=== PATIENT | male | born 1950 | race Caucasian/White ===

== ENCOUNTER → 2018-02-05 | Outpatient (CLI) | payer MEDICARE ==
[~2018-02-05] MED LIST: ASP81TEC PO; ATOR80TA PO; CHOL200018 PO; CLOP75TA PO; DIPH1TAB PO; FLUT1DIS26 IH; FOLI0.4T2 PO; LEVO75TA57 PO; METO50TA7 PO; OMEG1CAP74 PO; ONDA8TAB9 PO; PNT40TEC PO; RNT150T PO; TRIA16.5
== END ==
LOC: CARD 08:34
PROVIDERS: ATTEND Nurse Practitioner Family
DX: I25.10 Atherosclerotic heart disease of native coronary artery without angina pectoris (principal); I08.1 Rheumatic disorders of both mitral and tricuspid valves
CPT/HCPCS: 93306

== ENCOUNTER → 2018-02-09 | Outpatient (CLI) | payer MEDICARE ==
[~2018-02-09] MED LIST changes: +CATHETER FLUSH 10 ML SYR IV PRN
[2018-02-09 13:14] VITALS: BP 168/81
--- NOTE | 2018-02-10 00:20 | STRESS TEST ---
DATE OF SERVICE: 02/09/2018 RESTING AND POST EXERCISE TECHNETIUM-99M TETROFOSMIN SPECT CT IMAGING ORDERING PHYSICIAN: Pili Peña APRN PRIMARY CARE PHYSICIAN: Dr. Claudio. OTHER PHYSICIAN: Dr. Vogel. CLINICAL DIAGNOSES: Coronary artery disease. Baseline images were carried out after injection of 10.94 mCi of technetium-99m Tetrofosmin. This was followed by exercise on a treadmill. Mukund protocol was employed. He completed two stages and exercised for 2 minutes in the third stage. The total exercise time was 8 minutes. Exercise was stopped on account of fatigue. He attained 90% of maximum predicted heart rate. There did not appear to be significant ST segment changes consistent with ischemia. No significant arrhythmia was seen during exercise. Heart rate response to exercise was normal. Blood pressure response to exercise was somewhat hypertensive. In the recovery phase, a few isolated and one coupled premature ventricular contractions were seen. He received 32.8 mCi of technetium-99m Tetrofosmin for stress imaging after he had attained more than 85% of maximum predicted heart rate and the exercise was continued for more than another minute. Review of images at rest and following stress does not indicate any significant perfusion defects consistent with significant myocardial ischemia or infarction. Gated images show normal global left ventricular systolic function. Normal regional wall motion. Left ventricular ejection fraction is calculated to be 64%. Left ventricular end diastolic volume is 68 mL. TID is absent (1.04). CONCLUSIONS: 1. No evidence of significant myocardial ischemia or infarction on this study. 2. Normal regional wall motion. 3. Normal global left ventricular systolic function with a calculated ejection fraction 64%. 4. Normal left ventricular cavity size. Job ID: [id number] DocumentID: [id number] Dictated Date: 02/09/2018 20:40:39 Mushroom Press Operator Date: 02/10/2018 00:19:38 Dictated By: SOHEILA VOGEL MD, MA, FACP, FACC,
== END ==
LOC: CARD 12:01
PROVIDERS: ATTEND Nurse Practitioner Family
DX: I25.10 Atherosclerotic heart disease of native coronary artery without angina pectoris (principal)
CPT/HCPCS: 78452; 93017

== ENCOUNTER → 2020-01-10 | Outpatient (CLI) | payer MEDICARE ==
[~2020-01-10] MED LIST changes: -CATHETER FLUSH 10 ML SYR IV PRN
== END ==
LOC: CARD 07:15
PROVIDERS: ATTEND Internal Medicine Cardiovascular Disease
DX: I25.10 Atherosclerotic heart disease of native coronary artery without angina pectoris (principal); Z53.8 Procedure and treatment not carried out for other reasons

== ENCOUNTER 2020-01-28 16:04 | Outpatient (RCR) | payer MEDICARE ==
[~2020-01-28] VITALS: Ht 180 cm; Wt 95.9 kg
[~2020-01-28 16:04] MED LIST changes: +AMLO5TAB4 PO; +ASCO500C15 PO; +ASPI-999 PO; +ATOR80TA64 PO; +CHOL100048 PO; +CLOP75TA69 PO; +FAMO-119 PO; +FOLI0.8T PO; +LEVO100T7 PO; +NF-MET200T PO; +PANT40TA52 PO
== END 2020-01-28 16:05 | disposition home or self-care (01) ==
LOC: PREOP 16:04
PROVIDERS: ATTEND Internal Medicine
DX: Z01.812 Encounter for preprocedural laboratory examination (principal); Z20.828 Contact with and (suspected) exposure to other viral communicable diseases
CPT/HCPCS: 87635

== ENCOUNTER 2020-01-31 07:02 | Day surgery (SDC) | payer MEDICARE ==
--- NOTE | 2020-01-20 06:45 | HISTORY AND PHYSICAL ---
DATE OF SERVICE: COLONOSCOPY AND EGD HISTORY AND PHYSICAL HISTORY OF PRESENT ILLNESS: The patient is a 69-year-old white male, being set up for screening colonoscopy and diagnostic EGD. He has a history of reflux and reports that he has been having breakthrough symptoms on pantoprazole in the morning and recent switch due to contaminant issues from ranitidine to Pepcid 20 mg at bedtime. Most of his breakthrough symptoms are in the evening. He reports no change in occasional social alcohol intake and believes that his weight has been stable. He has a history of coronary artery disease several years out from stent placement for which he is on aspirin and Plavix. He has noted no bright red blood per rectum or melena and denies dysphagia. MEDICATIONS ON ADMISSION: Metoprolol 20 mg q.a.m. daily, Norvasc 5 mg at bedtime, Plavix 75 mg daily, aspirin 81 mg daily, pantoprazole 40 mg in the morning, Pepcid 20 mg in the evening. He also occasionally takes QVAR 2 puffs twice a day. FAMILY HISTORY: Father at the age of 58 secondary to myocardial infarction. Mother at the age of 69, result of a motor vehicle accident. He has one sister living at the age of 73 with history of nasopharyngeal carcinoma. SOCIAL HISTORY: He has roughly a [id number] smoking history, but quit 11 years ago with occasional social alcohol intake. PHYSICAL EXAMINATION: GENERAL: Reveals a well-appearing white male in no acute distress. VITAL SIGNS: Weight 211.4 pounds, blood pressure 126/60. HEENT: Unremarkable except that he did have cerumen impaction in the left ear only. He does have presbycusis for which he wears a hearing aid. NECK: Revealed no JVD, adenopathy or bruits. CHEST: Clear. CARDIOVASCULAR: Regular rate and rhythm without murmur, S3 or S4. ABDOMEN: Soft, supple without mass, organomegaly or tenderness. EXTREMITIES: Reveal no cyanosis, clubbing or edema. SKIN: Evaluation revealed no suspicious nevi. ASSESSMENT AND PLAN: The patient was set up for screening colonoscopy and diagnostic EGD due to her reflux symptoms refractory to proton pump inhibitor therapy. Prep instructions with the Suprep kit were given and questions were answered. The patient is being tentatively set up for 01/31/2020. The patient will hold aspirin and Plavix one week prior to the procedure. Job ID: [id number] DocumentID: [id number] Dictated Date: 01/15/2020 16:29:42 Tube Wrapper Date: 01/15/2020 17:04:58 Dictated By: YESY SANCHEZ MD
[~2020-01-31] VITALS: Ht 180 cm; Wt 95.9 kg
[2020-01-31] MEDS ORDERED: LACTATED RINGERS 1,000 ML IV ONE (07:06)
[2020-01-31] MEDS ORDERED: proPOfol 200 MG/20 ML (DIPRIVAN) VIAL IV ONE (07:18)
[2020-01-31] MEDS ORDERED: LACTATED RINGERS 1,000 ML IV STA (07:20)
[2020-01-31 07:30] VITALS: BP 128/83
[2020-01-31] MEDS ORDERED: HURRICAINE EXT TUBE (BENZOCAINE) XX PRN (07:30)
[2020-01-31] MEDS ORDERED: LIDOCAINE JELLY 2% 6 ML SYRINGE MM PRN (07:30)
[2020-01-31] MEDS ORDERED: LIDOCAINE JELLY 2% 6 ML SYRINGE ONE (07:52)
[2020-01-31] MEDS ORDERED: HURRICAINE EXT TUBE (BENZOCAINE) ONE (07:53)
[2020-01-31 08:30] VITALS: BP 107/57
[2020-01-31 08:35] VITALS: BP 110/61
--- NOTE | 2020-01-31 08:35 | Pre-Op Note & Conscious Sedat ---
Pre-Operative Progress Note H&P Reviewed The H&P was reviewed, patient examined and no changes noted. Date H&P Reviewed: Jan 31, 2020 Time H&P Reviewed: 07:40 Conscious Sedation Pre-Proced ASA Score 2 For ASA 3 and 4: Consider anesthesia and medical clearance. Also, for patients with a history of failed moderate sedation consider anesthesia. Airway Lungs Heart ASA score ASA 1: a normal healthy patient ASA 2: a patient with a mild systemic disease (mid diabetes, controlled hypertension, obesity ASA 3: a patient with a severe systemic disease that limits activity (angina, COPD, prior Myocardial infarction) ASA 4: a patient with an incapacitating disease that is a constant threat to life (CHF, renal failure) ASA 5: a moribund patient not expected to survive 24 hrs. (ruptured aneurysm) ASA 6: a declared brain- patient whose organs are being harvested. For emergent operations, add the letter E after the classification Mallampati Classification Grade 2 Sedation Plan Analgesia, Amnesia, Plan communicated to team members, Discussed options with patient/fam, Discussed risks with patient/fam The patient is an appropriate candidate to undergo the planned procedure, sedation, and anesthesia. The patient immediately re-assessed prior to indication. YESY SANCHEZ MD Jan 31, 2020 08:35
[2020-01-31 08:55] VITALS: BP 133/77
[2020-01-31 09:16] VITALS: BP 133/77
--- NOTE | 2020-01-31 09:56 | Anesthesia-General Post-Op ---
MAC Patient Condition Mental Status/LOC: Same as Preop Cardiovascular: Satisfactory Nausea/Vomiting: Absent Respiratory: Satisfactory Pain: Controlled Complications: Absent Post Op Complications Complications None Follow Up Care/Instructions Patient Instructions None needed. Anesthesiology Discharge Order Discharge Order Patient was seen after the procedure and he was doing well, no complaints, stable vital signs, no apparent adverse anesthesia problems. EMILY HAAS DO Jan 31, 2020 09:55
--- NOTE | 2020-01-31 21:33 | OPERATIVE REPORT ---
DATE OF SERVICE: 01/31/2020 PANENDOSCOPY SUMMARY PRIMARY CARE PHYSICIAN: Yesy Sanchez MD INDICATION FOR THE PROCEDURE: Screening colonoscopy and esophagogastroduodenoscopy evaluation for refractory gastroesophageal reflux disease. DESCRIPTION OF PROCEDURE: The patient was placed in the left lateral decubitus position. Procedure was under Diprivan based anesthesia. The upper endoscopy was performed first. The endoscope was inserted into the oral cavity and under direct visualization, the esophagus was intubated. Endoscope was passed down the esophagus, into the stomach and second portion of the duodenum. Careful inspection was made as the endoscope was withdrawn. The patient tolerated the procedure well. FINDINGS: The posterior pharynx, arytenoid aperture, true and false vocal folds and epiglottis were unremarkable to visual inspection. The proximal, mid and distal esophagus were unremarkable to gross inspection as well. The Z line was distinct. There was evidence for lower esophageal sphincter laxity with a questionable small hiatal hernia. The cardia, fundus, antrum, pylorus, pyloric channel, duodenal bulb and second portion of duodenum were unremarkable with no evidence for inflammation or ulceration EGD findings compatible with lower esophageal sphincter laxity, but no evidence for esophagitis. I just discussed Gaviscon for breakthrough reflux symptoms, continuing proton pump inhibitor therapy in the morning and famotidine in the evening. We then proceeded with colonoscopy. DESCRIPTION OF PROCEDURE: Prior to undergoing colonoscopy, digital rectal evaluation was performed. Anal sphincter tone was normal and the perianal reflex was intact. The prostate is not enlarged and anodular on digital inspection. No abnormalities were noted on digital inspection of the anal canal or distal rectum. The colonoscope was then inserted into the rectum and under direct visualization advanced to cecum. The cecum was identified by identification of the ileocecal valve and cecal strap. Photographic documentation was obtained. The Quality of prep was good. FINDINGS: There was no evidence for internal or external hemorrhoids and the rectum was unremarkable. Present in the distal sigmoid colon was a diminutive hyperplastic-appearing polyp. It was biopsied and ablated and submitted for histopathology. The remainder of the sigmoid colon was unremarkable with no evidence for diverticular disease. The descending colon, splenic flexure, transverse colon, hepatic flexure, ascending colon and cecum were unremarkable. ASSESSMENT AND PLAN: One diminutive hyperplastic appearing polyp was removed from the distal sigmoid colon with otherwise unremarkable colonoscopy to the cecum. As long as there is no surprise on histopathology evaluation, we will be abdicating consideration for repeat screening colonoscopy in 10 years. Job ID: [id number] DocumentID: [id number] Dictated Date: 01/31/2020 11:38:10 Continuous Miner Operator Date: 01/31/2020 21:33:06 Dictated By: YESY SANCHEZ MD MTDD
== END 2020-01-31 09:15 | disposition home or self-care (01) ==
LOC: ENDO 07:02
PROVIDERS: ATTEND Internal Medicine
DX: Z12.11 Encounter for screening for malignant neoplasm of colon (principal); K63.5 Polyp of colon; K21.9 Gastro-esophageal reflux disease without esophagitis; I10 Essential (primary) hypertension; I25.10 Atherosclerotic heart disease of native coronary artery without angina pectoris; E78.5 Hyperlipidemia, unspecified; J45.909 Unspecified asthma, uncomplicated; M06.9 Rheumatoid arthritis, unspecified; K58.9 Irritable bowel syndrome, unspecified; Z88.2 Allergy status to sulfonamides; Z95.5 Presence of coronary angioplasty implant and graft; Z79.899 Other long term (current) drug therapy; Z87.891 Personal history of nicotine dependence; Z88.1 Allergy status to other antibiotic agents; Z79.02 Long term (current) use of antithrombotics/antiplatelets; Z79.82 Long term (current) use of aspirin; Z79.890 Hormone replacement therapy
CPT/HCPCS: 88305

== ENCOUNTER → 2020-02-13 | Outpatient (CLI) | payer MEDICARE | LOC: CARD 10:45 | PROVIDERS: ATTEND Nurse Practitioner Family | DX: I25.10 Atherosclerotic heart disease of native coronary artery without angina pectoris (principal) | CPT/HCPCS: 93306 ==

== ENCOUNTER → 2021-02-08 | Outpatient (CLI) | payer MEDICARE ==
[~2021-02-08] MED LIST changes: -ASCO500C15 PO; +ASCO500C18 PO; -FOLI0.8T PO; +FOLI0.8T4 PO
--- NOTE | 2021-02-08 09:44 | Diagnostic Imaging Report ---
HISTORY: Chronic neck pain TECHNIQUE: 4 views of the cervical spine COMPARISON: 11/26/2009 FINDINGS: No acute fracture is seen in the cervical spine. Alignment appears normal. There are severe degenerative changes at C5-C6 and C6-C7 and mild degenerative changes elsewhere in the cervical spine. C1-C2 alignment appears normal. Vertebral body heights are preserved. Prevertebral soft tissues appear normal. IMPRESSION: 1. Severe degenerative changes at C5-C6 and C6-C7 with no acute osseous abnormalities seen in the cervical spine. Dictated by: Dictated on workstation # [id number]
--- NOTE | 2021-02-08 09:46 | Diagnostic Imaging Report ---
HISTORY: Chronic back pain TECHNIQUE: 2 views of the thoracic spine. 3rd swimmer's view of the thoracic spine is included on the cervical spine radiographs COMPARISON: None FINDINGS: There is slight left convex curvature of the thoracic spine centered at T11. No spondylolisthesis is seen. There are moderate degenerative changes throughout the thoracic spine. No acute fracture is seen. Vertebral body heights are generally preserved. Cholecystectomy clips are noted. IMPRESSION:. Moderate degenerative changes in the thoracic spine with no acute fracture seen. Dictated by: Dictated on workstation # [id number]
--- NOTE | 2021-02-08 09:47 | Diagnostic Imaging Report ---
EXAMINATION: Lumbar spine at 9:13 AM INDICATION: Thoracolumbar pain 3 views were obtained. There are no prior studies available for comparison. The lateral view shows the vertebral body heights and alignment to be generally within normal limits. There is mild narrowing of the disc spaces at L1-2, L2-3 and L4-L5. There are also prominent bridging osteophytes along the ventral aspects of the thoracolumbar junction extending from T9 to L2. There is no fracture or acute bony abnormality appreciated. There is no sign of a paraspinal mass. There is a 5.7 mm calcification overlying the right kidney. I suspect this is intrarenal. If further study is desired, then ultrasound would be recommended. There is mild symmetrical sclerosis of the sacroiliac joints. IMPRESSION: 1. There is no evidence for an acute bony abnormality. 2. 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 3. Probable right nephrolithiasis. 4. These results were discussed with Dr. Galvez. Dictated by: Dictated on workstation # [id number]
== END ==
LOC: RAD 08:44
PROVIDERS: ATTEND Urology
DX: M47.813 Spondylosis without myelopathy or radiculopathy, cervicothoracic region (principal); M51.36 Other intervertebral disc degeneration, lumbar region; N28.89 Other specified disorders of kidney and ureter
CPT/HCPCS: 72040; 72072; 72100

== ENCOUNTER → 2021-06-10 | Outpatient (CLI) | payer MEDICARE | LOC: LABNPT 07:52 | PROVIDERS: ATTEND Urology | DX: Z20.822 Contact with and (suspected) exposure to COVID-19 (principal) | CPT/HCPCS: 87636 ==

== ENCOUNTER → 2022-02-24 | Outpatient (CLI) | payer MEDICARE ==
[~2022-02-24] MED LIST changes: +CATHETER FLUSH 10 ML SYR IVP PRN; +REGADENOSON 0.4 MG/5 ML SYR (LEXISCAN) IV ONE
[2022-02-24 07:42] VITALS: BP 139/76
--- NOTE | 2022-02-24 19:35 | STRESS TEST ---
DATE OF SERVICE: 02/24/2022 RESTING AND POST REGADENOSON TECHNETIUM-99M TETROFOSMIN SPECT CT IMAGING CLINICAL DIAGNOSIS: Coronary artery disease. ORDERING PHYSICIAN: Dr. More. PRIMARY PHYSICIAN: Dr. Claudio. Baseline images were carried out after injection of 10.95 mCi of technetium-99m Tetrofosmin. This was followed by 0.4 mg regadenoson and 30.3 mCi of technetium 99m tetrofosmin for stress imaging. The electrocardiogram showed sinus rhythm at baseline. It did not change significantly with the regadenoson infusion. He tolerated the procedure well. Review of images at rest and following stress does not indicate any significant perfusion defect consistent with significant myocardial ischemia or infarction. Gated images showed normal global left ventricular systolic function with normal regional wall motion. Left ventricular ejection fraction was calculated to be 60%. CONCLUSIONS: 1. No evidence of any significant myocardial ischemia or infarction. 2. Normal regional wall motion, normal global left ventricular systolic function with a calculated ejection fraction of 60%. Job ID: [id number] DocumentID: [id number] Dictated Date: 02/24/2022 17:15:18 Aquatic Life Laborer Date: 02/24/2022 19:33:00 Dictated By: SOHEILA MORE MD; SERGE; FACP; FACC;
== END ==
LOC: CARD 06:27
PROVIDERS: ATTEND Nurse Practitioner Family
DX: I25.10 Atherosclerotic heart disease of native coronary artery without angina pectoris (principal)
CPT/HCPCS: 78452; 93017; A9502